=== PATIENT | female | born 1980 | race Caucasian/White ===

== ENCOUNTER → 2021-02-08 11:16 | Outpatient (CLI) | payer OTHER, SELFPAY ==
[2021-02-09 09:00] LABS: Bacteria Urine None Seen
[2021-02-09 09:33] LABS: Cholesterol 201 mg/dL (140-199); HDL Cholesterol 51 mg/dL (40-60); LDL Cholesterol Calculated 135 mg/dL (<100); Triglycerides 74 mg/dL (35-150)
[2021-02-09 09:40] LABS: Appearance Urine UA CLEAR; Bilirubin Urine UA NEGATIVE (NEGATIVE); Color Urine UA YELLOW; Glucose Urine UA NEGATIVE (Negative); Ketones Urine UA NEGATIVE (NEGATIVE); Leukocyte Esterase Urine UA NEGATIVE (NEGATIVE); Nitrite Urine UA NEGATIVE (Negative); Occult Blood Urine UA 3+ (Negative); Protein Urine UA NEGATIVE (Negative); Specific Gravity Urine UA <=1.005 (1.000-1.035); Urobilinogen Urine UA 0.2 E.U./dL (0.2)
[2021-02-09 09:48] LABS: pH Urine UA 6.5 (4.5-8.0)
[2021-02-09 10:02] LABS: RBC Urine 1-5/HPF (0-5/HPF); WBC Urine 1-5/HPF (0-5/HPF)
[2021-02-09 10:03] LABS: Culture Indicated Urine Cult Not Indicated
== END ==
PROVIDERS: PCP Family Medicine; Visit Provider Family Medicine
DX: E78.5 Hyperlipidemia, unspecified (principal); R31.1 Benign essential microscopic hematuria
CPT/HCPCS: 80061; 81001

== ENCOUNTER → 2023-03-29 09:35 | Outpatient (CLI) | payer OTHER, SELFPAY ==
[2023-03-29 20:17] LABS: Add Manual Diff / Slide Review NO; Basophils Absolute Auto 100 /uL (0-100); Basophils Percent Auto 1.4 % (0-2); Eosinophils Absolute Auto 100 /uL (0-450); Eosinophils Percent Auto 1.6 % (2-4); Hematocrit 38.8 % (36-46); Lymphocytes Absolute Auto 1900 /uL (1100-4500); Lymphocytes Percent Auto 30.5 % (25-40); Mean Corpuscular HGB Conc 33.6 % (30-36); Mean Corpuscular Hemoglobin 30.1 PG (26-34); Mean Corpuscular Volume 89.8 fL (80-100); Monocytes Absolute Auto 500 /uL (0-900); Monocytes Percent Auto 7.7 % (3-14); Neutrophils Absolute Auto 3700 /uL (1500-7000); Neutrophils Percent Auto 58.8 % (50-75); Platelet Count 257 X10^3/uL (150-400); Red Blood Cell Count 4.33 X10^6/uL (4.0-5.2); Red Cell Distribution Width 13.1 % (11.6-14.8); White Blood Cell Count 6.3 X10^3/uL (4.5-11.0)
[2023-03-29 20:29] LABS: Alanine Aminotransferase 32 IU/L (<35); Albumin 4.1 g/dL (3.5-5.0); Albumin Globulin Ratio 1.3 (1.0-2.8); Alkaline Phosphatase 51 U/L (38-126); Aspartate Aminotransferase 32 IU/L (14-36); BUN Creatinine Ratio 16.7 (6-22); Bilirubin Total 0.6 mg/dL (0.2-1.3); Blood Urea Nitrogen 16 mg/dL (7-17); Calcium 8.8 mg/dL (8.4-10.2); Carbon Dioxide 27 mmol/L (22-32); Chloride 102 mmol/L (98-107); Cholesterol 284 mg/dL (140-199); Estimated Glomerular Filt Rate > 60 mL/min (>60); Globulin 3.1 g/dL (1.7-4.1); Glucose 92 mg/dL (70-100); HDL Cholesterol 68 mg/dL (40-60); HEMOLYSIS < 15 (0-50); LDL Cholesterol Calculated 198 mg/dL (<100); Potassium 4.1 mmol/L (3.4-5.1); Sodium 136 mmol/L (137-145); Total Protein 7.2 g/dL (6.3-8.2); Triglycerides 89 mg/dL (35-150)
[2023-03-29 20:55] LABS: TSH w/ Reflex to FT4 3.84 uIU/mL (0.47-4.68)
[2023-03-30 23:41] LABS: x Labcorp Estim. Avg Glu (eAG) 105 mg/dL (.); x Labcorp Hemoglobin A1c 5.3 % (4.8-5.6)
== END ==
PROVIDERS: PCP Family Medicine; Visit Provider Nurse Practitioner Adult Health
DX: Z01.419 Encounter for gynecological examination (general) (routine) without abnormal findings (principal)
CPT/HCPCS: 80053; 80061; 83036; 84443; 85025

== ENCOUNTER → 2023-10-16 13:57 | Outpatient (CLI) | payer OTHER, SELFPAY ==
--- NOTE | 2023-10-16 14:01 | DI.US.S_ITS ---
PROCEDURE: US PELVIC COMPLETE INDICATIONS: intermenstrual bleeding TECHNIQUE: Real-time scanning was performed of the pelvic organs, with image documentation. Additional endovaginal scanning was necessary due to incomplete visualization of the adnexal and endometrial structures by transabdominal scanning. COMPARISON: None. FINDINGS: Uterus: Uterus is retroverted and normal in size at 11.1 x 7.9 x 9.8 cm. The myometrium is heterogenous. The endometrium is not well visualized. Multiple uterine fibroids present. Largest is a right posterior intramural fibroid measuring 8.3 x 7.6 x 6.4 cm. Ovaries: The right ovary measures 3.9 x 2.7 x 1.9 cm, with a calculated ovarian volume of 10.4 cc. The left ovary measures 3.3 x 2.8 x 1.2 cm, with a calculated ovarian volume of 4.1 cc. The ovaries have a normal sonographic appearance. Less than 12 follicles can be seen in each ovary. sided hemorrhagic ovarian cyst 2.2 x 1.8 x 1.2 cm No adnexal masses are seen. Other: No pathologic free abdominal or pelvic fluid. IMPRESSION: Right ovarian hemorrhagic cyst, 2.2 cm. Large uterine fibroids measure up to 8.3 cm Approved by: Bernardo Burger M.D. on 10/16/2023 at 17:01
== END ==
PROVIDERS: PCP Family Medicine; Referring Provider Student in an Organized Health Care Education/Training Program; Visit Provider Student in an Organized Health Care Education/Training Program
DX: N92.6 Irregular menstruation, unspecified (principal); D25.1 Intramural leiomyoma of uterus; N83.201 Unspecified ovarian cyst, right side
CPT/HCPCS: 76830; 76856

== ENCOUNTER 2025-07-28 12:00 | Emergency (ER) | payer BC, SELFPAY ==
[2025-07-28] VITALS (7 sets, daily range): BP systolic 107–145; BP diastolic 67–83; PULSE 65–92; RESP 16–24; TEMP 36.5; O2SAT 97–100; BMI 22.2
--- NOTE | 2025-07-28 12:05 | EKG_ITS ---
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
--- NOTE | 2025-07-28 12:06 | EKG_ITS ---
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
--- NOTE | 2025-07-28 12:06 | DI.RAD.S_ITS ---
PROCEDURE: XR CHEST 1V INDICATIONS: Chest Pain TECHNIQUE: One view of the chest was acquired. COMPARISON: Outside Facility, RG, CT CALCIUM SCORING, 11/15/2024, 10:31. FINDINGS: Surgical changes and devices: None. Lungs and pleura: Few calcified granulomata are redemonstrated. Lungs are otherwise clear. No pleural effusions or pneumothorax. Mediastinum: Mediastinal contours appear normal. Heart size is normal. Bones and chest wall: No suspicious bony lesions. Overlying soft tissues appear unremarkable. IMPRESSION: Few calcified granulomata are noted, better evaluated on prior CT. Otherwise, no acute cardiopulmonary abnormality is seen. Dictated by: Umang Baum M.D. on 07/28/2025 at 12:44 Approved by: Umang Baum M.D. on 07/28/2025 at 12:50
[2025-07-28] MEDS: ASPIRIN 81 MG CHEW TAB 324 MG PO (12:19)
[2025-07-28 12:29] LABS: Add Manual Diff / Slide Review NO; Hematocrit 40.4 % (36-46); Hemoglobin 13.6 g/dL (12.0-16.0); Lymphocytes Absolute Auto 1900 /uL (1100-4500); Mean Corpuscular HGB Conc 33.6 % (30-36); Mean Corpuscular Hemoglobin 28.6 PG (26-34); Mean Corpuscular Volume 85.1 fL (80-100); Platelet Count 310 X10^3/uL (150-400)
[2025-07-28 12:35] LABS: INR 1.0 (0.9-1.3); Prothrombin Time 11.0 SECONDS (9.4-12.5)
[2025-07-28 12:38] LABS: PTT Partial Thromboplastin Tim 31 SECONDS (25.1-36.5)
[2025-07-28 12:41] LABS: Alanine Aminotransferase 19 IU/L (<35); Albumin 4.6 g/dL (3.5-5.0); Albumin Globulin Ratio 1.4 (1.0-2.8); Alkaline Phosphatase 50 U/L (38-126); Blood Urea Nitrogen 15 mg/dL (7-17); Calcium 9.5 mg/dL (8.4-10.2); Carbon Dioxide 25 mmol/L (22-32); Chloride 103 mmol/L (98-107); Creatine Kinase 53 U/L (30-135); Estimated Glomerular Filt Rate > 60 mL/min (>60); Globulin 3.4 g/dL (1.7-4.1); Glucose 121 mg/dL (70-99); HEMOLYSIS < 15 (0-50); Lipase 108 U/L (23-300); Magnesium 2.0 mg/dL (1.6-2.3); Potassium 3.7 mmol/L (3.4-5.1); Sodium 137 mmol/L (137-145); Total Protein 8.0 g/dL (6.3-8.2)
[2025-07-28 12:52] LABS: NT-proBNP (BNP-Adult 18+) 53 pg/mL (<125); Troponin I < 0.012 ng/mL (0.01-0.034)
--- NOTE | 2025-07-28 13:37 | ED.CHESTPAIN ---
HPI - Chest Pain General Chief Complaint: Chest Pain Stated Complaint: chest pain Time Seen by Provider: 07/28/25 13:37 Source: patient, RN notes reviewed and old records reviewed Mode of arrival: Ambulatory Limitations: no limitations History of Present Illness HPI narrative: 45-year-old female with history of fibroids presents with complaint of feeling spacey and foggy and just sort of off since Monday. States has been sort of an intermittent sensation. She denies any syncope. No weakness. No fevers no cold cough or congestion symptoms. Notes little bit of mild chest pressure has been constant. No shortness of breath. No diaphoresis. No nausea or vomiting. She notes her bowel movements she has not had constipation or diarrhea but states they have been sort of off for a couple of weeks. She has not had any black or bloody stools. She denies dysuria urgency or frequency. She denies any vaginal bleeding or discharge. No swelling of her extremities. No numbness tingling or weakness. She states she is ambulating and speaking normally. Patient states she was seen in the clinic on [place] did have some evaluation but was told to come here if symptoms persist. She states no past medical issues, no daily medications. She has had a prior in a prior surgery of her jaw to correct her bite. Denies any drug allergies. No tobacco, alcohol or recreational drugs. She does not take any estrogen or other supplements reported. No long distance travel. No known cardiac or pulmonary history. She lives on [facility]. Related Data Home Medications ?Medication ?Instructions ?Recorded ?Confirmed Unobtainable 10/18/23 10/18/23 Allergies Allergy/AdvReac Type Severity Reaction Status Date / Time INGREDIENT: NKDA - NO KNOWN Allergy Unknown Uncoded 07/28/25 12:09 DRUG ALLERGIES Review of Systems Review of Systems ROS Unobtainable: All systems reviewed & are unremarkable except as noted in HPI and below Patient History Medical History Intramural uterine fibroid Migraines Chicken pox (~1982) Well woman exam with routine gynecological exam Cervical cancer screening Surgical History Anesthesia History of section (~2013) History of mandibular surgery (~2007) Family History Father Multiple myeloma Cancer History of heart disease History of heart attack Mother Hyperlipidemia Arthritis Grandfather History of heart attack Social History Smoking Status: Never smoker Smoking Status: Never smoker Exam Narrative Exam Narrative: GEN: well nourished, well appearing female, alert and oriented x 3, patient appears to be in mild distress. HEENT: Atraumatic, pupils are equal round reactive to light, extraocular movements are intact, nares are clear, there is no conjunctival pallor. Throat is clear without any exudates, erythema, tonsillar enlargement or uvular deviation, no facial droop. HEART: Regular rate and rhythm without murmur, clicks, rubs. LUNGS:Lungs clear to auscultation, no wheezes, rales, crackles, chest moves symmetrically ABD:bowel sounds normal, soft, non-tender, no guarding, rebound, rigidity, no masses noted, no hepatosplenomegaly :No CVA tenderness MSCL: Non-tender, no muscle atrophy, muscles strength 5/5 upper and lower extremities, full range of motion, normal gait NEURO:CN 2-12 intact, sensation normal. Normal speech. SKIN: No rash, erythema or skin changes Initial Vital Signs Initial Vital Signs: Vital Signs Temperature 97.7 F 07/28/25 12:07 Pulse Rate 92 H 07/28/25 12:07 Respiratory Rate 18 07/28/25 12:07 Blood Pressure 141/80 H 07/28/25 12:07 Pulse Oximetry 97 07/28/25 12:07 Oxygen Delivery Method Room Air 07/28/25 12:07 Course Orders Ordered: ED Orders 07/28/25 12:06 XR chest 1V Stat EKG-12 Lead Stat 07/28/25 12:10 Complete Blood Count AUTO DIFF Stat Comprehensive Metabolic Panel Stat D Dimer Stat Lipase Stat Magnesium Stat NT-proBNP (BNP-Adult 18+) Stat PTT Partial Thromboplastin Adrien Stat Prothrombin Time INR Stat Troponin & CK Cardiac Panel Stat Discontinued Medications Aspirin (Aspirin 81 Mg Chew Tab) 324 mg PO NOW ONE Stop: 07/28/25 12:07 Last Admin: 07/28/25 12:19 Dose: 324 mg Documented By: SB Vital Signs Vital signs: Vital Signs - 8 hr 07/28/25 12:07 07/28/25 12:14 07/28/25 12:30 Temperature 97.7 F Pulse Rate 92 H 85 87 Respiratory Rate 18 22 24 Blood Pressure 141/80 H 145/83 H 129/70 Pulse Oximetry 97 100 99 Oxygen Delivery Method Room Air Room Air 07/28/25 13:00 07/28/25 13:30 07/28/25 14:00 Temperature Pulse Rate 73 71 74 Respiratory Rate 23 20 24 Blood Pressure 117/67 107/67 112/73 Pulse Oximetry 98 98 98 Oxygen Delivery Method 07/28/25 15:00 Temperature Pulse Rate 65 Respiratory Rate 16 Blood Pressure Pulse Oximetry 98 Oxygen Delivery Method Room Air MDM - Chest Pain Lab Data 07/28/25 12:10 07/28/25 12:10 Labs: Lab Results 07/28/25 Range/Units 12:10 WBC 5.6 (4.5-11.0) X10^3/uL RBC 4.74 (4.0-5.2) X10^6/uL Hgb 13.6 (12.0-16.0) g/dL Hct 40.4 (36-46) % MCV 85.1 (80-100) fL MCH 28.6 (26-34) PG MCHC 33.6 (30-36) % RDW 15.2 H (11.6-14.8) % Plt Count 310 (150-400) X10^3/uL Neut % (Auto) 55.1 (50-75) % Lymph % (Auto) 34.5 (25-40) % [facility] % (Auto) 5.6 (3-14) % Eos % (Auto) 3.4 (2-4) % Baso % (Auto) 1.4 (0-2) % Neut # (Auto) 3100 (4579-7518) /uL Lymph # (Auto) 1900 (4752-5561) /uL [facility] # (Auto) 300 (0-900) /uL Eos # (Auto) 200 (0-450) /uL Baso # (Auto) 100 (0-100) /uL PT 11.0 (9.4-12.5) SECONDS INR 1.0 (0.9-1.3) APTT 31 (25.1-36.5) SECONDS D-Dimer < 215 (<500) ng/ml Sodium 137 (137-145) mmol/L Potassium 3.7 (3.4-5.1) mmol/L Chloride 103 (98-107) mmol/L Carbon Dioxide 25 (22-32) mmol/L BUN 15 (7-17) mg/dL Creatinine 0.99 (0.52-1.04) mg/dL Estimated GFR > 60 (>60) mL/min BUN/Creatinine Ratio 15.2 (6-22) Glucose 121 H (70-99) mg/dL Calcium 9.5 (8.4-10.2) mg/dL Magnesium 2.0 (1.6-2.3) mg/dL Total Bilirubin 0.6 (0.2-1.3) mg/dL AST 27 (14-36) IU/L ALT 19 (<35) IU/L Alkaline Phosphatase 50 (38-126) U/L Total Creatine Kinase 53 (30-135) U/L Troponin I < 0.012 (0.01-0.034) ng/mL NT-Pro-B Natriuret Pep 53 (<125) pg/mL Total Protein 8.0 (6.3-8.2) g/dL Albumin 4.6 (3.5-5.0) g/dL Globulin 3.4 (1.7-4.1) g/dL Albumin/Globulin Ratio 1.4 (1.0-2.8) Lipase 108 (23-300) U/L Point of Care Testing Test Results Negative Urine Dip Bedside Urine Glucose Negative Bedside Urine Bilirubin - Negative Bedside Urine Ketone - Negative Urine Specific [place] 1.000 Bedside Urine Occult Blood - Negative Bedside Urine pH 6.0 Bedside Urine Protein - Negative Bedside Urine Urobilinogen - Negative Bedside Urine Nitrite - Negative Bedside Urine Leukocytes - Negative Esterase ECG Data Attestation: I personally reviewed and interpreted this ECG as follows: Prior ECG tracings: not available for review Interpretation: Sinus rhythm rate of 69 [place] 134 QRS is 78 QTC 458, no acute ST elevation depression. No prior for comparison. [facility] Narrative Medical decision making narrative: EKG shows sinus rhythm no acute ST changes appreciated. Labs show normal white count, hemoglobin and platelets, PTT and INR are normal, electrolytes are appropriate BUN and creatinine normal glucose is 121, LFTs are negative troponins less than 0.012 with a BNP of 53 lipase of 108. Dimer is less than 215 Chest x-ray few calcified granulomas are noted better evaluated on prior CT otherwise no acute cardiopulmonary abnormality seen. Urine is negative, urine is negative. Patient is ambulating here in the department without issue. Has been taking oral hydration without issue. 45-year-old female who describes feeling foggy and shaky but normal exam, I workup here in the department does not show any clear source. Patient is felt appropriate for discharge home but with follow up. Was encouraged to follow up with primary care for further evaluation and discussed return precautions. Discharge Plan Departure Patient Disposition: Home Clinical Impression: Lightheadedness Activity Restrictions/Additional Instructions: Follow up with your physician for evaluation. Please return if you have new or worsening symptoms any passing out, severe fevers, severe headaches, new chest pain or shortness of breath, persistent vomiting, difficulty with speech or movement or other new or concerning changes. Prescriptions: No Action Unobtainable Referrals: Eliecer Parrish MD [Primary Care Provider, Family Practice] Stand Alone Forms: Patient Portal/API
== END 2025-07-28 15:20 | disposition home or self-care (01) ==
PROVIDERS: Emergency Provider Emergency Medicine; PCP Family Medicine
DX: R42 Dizziness and giddiness (principal)
CPT/HCPCS: 36415; 71045; 80053; 81003; 81025; 82550; 83690; 83735; 83880; 84484; 85025; 85379; 85610; 85730; 93005; 99284